=== PATIENT | female | born 1940 | race Caucasian/White ===

== ENCOUNTER 2018-11-05 11:12 | Inpatient (IN) | payer MEDICARE, MEDICAID ==
[~2018-11-05] VITALS: Ht 162.6 cm; Wt 44.4 kg
[2018-11-26 08:00] VITALS: BP 110/71
== END 2018-11-26 10:39 | DRG 480 ==
LOC: ED 11:53 → EDIP 12:34 → 4NOR 13:45 → 5SO 11-07 17:36 → CCU 11-08 05:21 → 4WST 11-12 18:47
PROVIDERS: ADMIT Internal Medicine; ATTEND Internal Medicine
PROC: 0QS636Z Reposition Right Upper Femur with Intramedullary Internal Fixation Device, Percutaneous Approach (ICD-10-PCS; principal; 2018-11-06)
PROC: 0PSH34Z Reposition Right Radius with Internal Fixation Device, Percutaneous Approach (ICD-10-PCS; 2018-11-06)
PROC: 30233N1 Transfusion of Nonautologous Red Blood Cells into Peripheral Vein, Percutaneous Approach (ICD-10-PCS; 2018-11-08)
DX: S72.141A Displaced intertrochanteric fracture of right femur, initial encounter for closed fracture (principal); J69.0 Pneumonitis due to inhalation of food and vomit; I50.43 Acute on chronic combined systolic (congestive) and diastolic (congestive) heart failure; J96.01 Acute respiratory failure with hypoxia; S52.551A Other extraarticular fracture of lower end of right radius, initial encounter for closed fracture; S52.601A Unspecified fracture of lower end of right ulna, initial encounter for closed fracture; D62 Acute posthemorrhagic anemia; E46 Unspecified protein-calorie malnutrition; I42.9 Cardiomyopathy, unspecified; Z68.1 Body mass index [BMI] 19.9 or less, adult; I08.3 Combined rheumatic disorders of mitral, aortic and tricuspid valves; D72.828 Other elevated white blood cell count; W10.9XXA Fall (on) (from) unspecified stairs and steps, initial encounter; E87.6 Hypokalemia; I48.0 Paroxysmal atrial fibrillation; K21.9 Gastro-esophageal reflux disease without esophagitis; Z87.81 Personal history of (healed) traumatic fracture; Z87.891 Personal history of nicotine dependence; Z79.899 Other long term (current) drug therapy; Z90.49 Acquired absence of other specified parts of digestive tract; Z88.6 Allergy status to analgesic agent; Y93.89 Activity, other specified; Y92.89 Other specified places as the place of occurrence of the external cause; Y99.8 Other external cause status
CPT/HCPCS: 36415; 36430; 36600; 71045; 76000; 80048; 80162; 82040; 82803; 83735; 83880; 84100; 84145; 84439; 84443; 84484; 85018; 85025; 85610; 85730; 86850; 86900; 86923; 87070; 87081; 87205; 93005; 93306; 94660; 96374; 99285; C1713; G0378; J0295; J0690; J1100; J1170; J1644; J1650; J1885; J2020; J2405; J2543; J2550; J2704; J2710; J3010; J3480; Q0162; Q0167; C9113; J0330; J1160; J1200; J1940; J2270; J7030; J7040; P9016

== ENCOUNTER 2020-02-10 03:40 | Inpatient (IN) | payer MEDICARE, MEDICAID ==
[~2020-02-10] VITALS: Ht 160 cm; Wt 53.4 kg
[~2020-02-10 03:40] MED LIST: ACET325T26 PO; APIX5TAB PO; CARV3.1212 PO; DIGO125T85 PO; DRON2.5C2 PO; LIDO700A20 TD; NYST1000 PO; PANT40TA6 PO; PEG15DRO4 EACHEYE; Simethicone PO; TRAM50TA2 PO
--- NOTE | 2020-02-10 03:56 | NUR ---
THIS IS A 79Y F BIB EMS FROM [facility], PT WAS SEEN THERE TODAY FOR WEAKNESS FOLLOWING N/V X1WK OR SO. PT WAS ADMITTED PREVIOUSLY FOR GASTRITIS LAST MONTH. PT TODAY WAS FOUND TO HAVE CA OF 13.5 TRENDING DOWN AFTER 2L NS, 4ZOFRAN, AND 40 OF LASIX. PT TRANSFERED HERE DUE TO LACK OF AVAILABLE MONITORED BEDS AT [facility]. PT CONNECTED TO ALL MONITORING VSS, NADN.
[2020-02-10] MEDS ORDERED: SODIUM CHLORIDE 0.9% 1,000ML IVBOLUS ONE (04:00)
[2020-02-10 04:41] LABS: ALBUMIN 3.1 g/dL (3.4-5.0); ANION GAP 5 mmol/L (5-15); CALCIUM 11.5 mg/dL (8.5-10.1); CHLORIDE 103 mmol/L (98-107); CREATININE 2.79 mg/dL (0.55-1.02)
--- NOTE | 2020-02-10 04:59 | NUR ---
pt resting on gurestee provided with water, anne
[2020-02-10] MEDS ORDERED: morphine SULFATE 10 MG/ML, 1ML IVPush PRN (05:00)
[2020-02-10] MEDS ORDERED: SODIUM CHLORIDE 0.9% 1,000 ML IV SCH (05:00)
--- NOTE | 2020-02-10 05:36 | NUR ---
REPORT TO RASHEED
[2020-02-10] MEDS ORDERED: PHARMACY MAY ADJ FOR RENAL FX MC PRN (06:00)
--- NOTE | 2020-02-10 06:10 | NUR ---
Ambulated to bathroom independently, slow/steady gait
--- NOTE | 2020-02-10 06:17 | NUR ---
Report given to Marlena RUBIO
[2020-02-10 08:16] LABS: CHLORIDE,URINE RANDOM 92 mmol/L; POTASSIUM,URINE RANDOM 23 mmol/L; SODIUM,URINE RANDOM 94 mmol/L
[2020-02-10 09:09] VITALS: BP 105/73
[2020-02-10 12:46] LABS: ALBUMIN 3.1 g/dL (3.4-5.0); CALCIUM 10.9 mg/dL (8.5-10.1); CHLORIDE 104 mmol/L (98-107); CREATININE 2.71 mg/dL (0.55-1.02)
[2020-02-10 12:53] LABS: ANION GAP 7 mmol/L (5-15)
[2020-02-10] MEDS ORDERED: POTASSIUM CHLORIDE 20 MEQ TAB.ER.PRT PO ONE ×2 (14:00→19:00)
[2020-02-10 15:23] VITALS: BP 94/56
[2020-02-10 18:28] LABS: ANION GAP 4 mmol/L (5-15); CHLORIDE 106 mmol/L (98-107); CREATININE 2.64 mg/dL (0.55-1.02)
[2020-02-10] MEDS ORDERED: POTASSIUM CHLORIDE 40 MEQ in SODIUM CHLORIDE 0.9% 500 ML IV ONE (19:00)
[2020-02-10] MEDS: ONDANSETRON 2MG/ML, 2ML IVPush PRN (20:01)
[2020-02-10] MEDS ORDERED: MAGNESIUM SULFATE PMX 2GM/50ML 50 ML IV ONE (21:00)
[2020-02-10 21:35] VITALS: BP 100/62
[2020-02-10] MEDS: PROMETHAZINE 25 MG/ML, 1ML IM PRN (22:16)
[2020-02-11 04:19] VITALS: BP 111/54
[2020-02-11 04:23] LABS: BASOPHILS % (AUTO) 1 % (0-1); EOSINOPHILS % (AUTO) 2 % (1-7); LYMPHOCYTES % (AUTO) 37 % (22-44); MEAN CORPUSCULAR HEMOGLOBIN 29.3 pg (27.0-34.8); MEAN CORPUSCULAR HGB CONC 33.5 g/dL (32.4-35.8); MEAN PLATELET VOLUME 6.7 fL (7.4-10.4); MONOCYTES % (AUTO) 9 % (2-9); NEUTROPHILS % (AUTO) 51 % (42-75); PLATELET COUNT 268 x10^3/uL (130-400); RED BLOOD COUNT 3.18 x10^6/uL (3.82-5.3); RED CELL DISTRIBUTION WIDTH 12.9 % (9.6-15.2)
[2020-02-11 04:27] LABS: MD NO
[2020-02-11 04:31] LABS: ALANINE AMINOTRANSFERASE 9 U/L (12-78); ALBUMIN 2.8 g/dL (3.4-5.0); ANION GAP 6 mmol/L (5-15); CALCIUM 10.1 mg/dL (8.5-10.1); CHLORIDE 111 mmol/L (98-107); CREATININE 2.54 mg/dL (0.55-1.02)
[2020-02-11 04:33] LABS: ALKALINE PHOSPHATASE 35 U/L (45-117); BILIRUBIN,TOTAL 0.3 mg/dL (0.2-1.0); TOTAL PROTEIN 5.5 g/dL (6.4-8.2)
[2020-02-11 06:05] LABS: MICROSCOPIC AUTO
[2020-02-11 08:10] VITALS: BP 134/71
[2020-02-11 13:03] VITALS: BP 118/75
[2020-02-11] MEDS: ACETAMINOPHEN 325 MG TABLET PO PRN (18:30)
[2020-02-11 19:25] VITALS: BP 123/79
[2020-02-11 22:15] VITALS: BP 117/61
[2020-02-11] MEDS: ARTIFICIAL TEARS 15 DROP/ML BOTTLE EACHEYE SCH (22:18)
[2020-02-11] MEDS: ONDANSETRON 2MG/ML, 2ML IVPush PRN (23:25)
[2020-02-12] MEDS: PROMETHAZINE 25 MG/ML, 1ML IM PRN (00:39)
[2020-02-12] MEDS: ACETAMINOPHEN 325 MG TABLET PO PRN ×2 (01:30→09:26)
[2020-02-12 01:41] VITALS: BP 116/95
[2020-02-12 04:33] LABS: ALANINE AMINOTRANSFERASE 9 U/L (12-78); ALBUMIN 2.6 g/dL (3.4-5.0); ANION GAP 5 mmol/L (5-15); CHLORIDE 113 mmol/L (98-107); CREATININE 2.43 mg/dL (0.55-1.02)
[2020-02-12 04:36] LABS: ALKALINE PHOSPHATASE 31 U/L (45-117); BILIRUBIN,TOTAL 0.4 mg/dL (0.2-1.0); TOTAL PROTEIN 5.4 g/dL (6.4-8.2)
[2020-02-12 06:54] VITALS: BP 110/67
[2020-02-12] MEDS: ARTIFICIAL TEARS 15 DROP/ML BOTTLE EACHEYE SCH ×2 (07:51→19:56)
[2020-02-12] MEDS ORDERED: POTASSIUM CHLORIDE 40 MEQ in SODIUM CHLORIDE 0.9% 500 ML IV ONE (09:00)
[2020-02-12] MEDS ORDERED: SODIUM CHLORIDE 0.9% 1,000ML IVBOLUS ONE (09:00)
[2020-02-12] MEDS: MAGNESIUM HYDROXIDE 8%, 30ML UDC PO SCH (11:22)
[2020-02-12 13:00] VITALS: BP 133/70
[2020-02-12 20:09] VITALS: BP 128/69
[2020-02-13 02:16] VITALS: BP 128/69
[2020-02-13 05:21] LABS: ALANINE AMINOTRANSFERASE 10 U/L (12-78); ALBUMIN 2.6 g/dL (3.4-5.0); ANION GAP 4 mmol/L (5-15); CALCIUM 9.5 mg/dL (8.5-10.1); CHLORIDE 115 mmol/L (98-107); CREATININE 2.05 mg/dL (0.55-1.02)
[2020-02-13 05:22] LABS: BASOPHILS % (AUTO) 1 % (0-1); EOSINOPHILS % (AUTO) 2 % (1-7); LYMPHOCYTES % (AUTO) 29 % (22-44); MEAN CORPUSCULAR HEMOGLOBIN 29.5 pg (27.0-34.8); MEAN CORPUSCULAR HGB CONC 34.1 g/dL (32.4-35.8); MEAN PLATELET VOLUME 6.8 fL (7.4-10.4); MONOCYTES % (AUTO) 8 % (2-9); NEUTROPHILS % (AUTO) 60 % (42-75); PLATELET COUNT 267 x10^3/uL (130-400); RED BLOOD COUNT 3.18 x10^6/uL (3.82-5.3)
[2020-02-13 05:23] LABS: ALKALINE PHOSPHATASE 31 U/L (45-117); BILIRUBIN,TOTAL 0.2 mg/dL (0.2-1.0); TOTAL PROTEIN 5.2 g/dL (6.4-8.2)
[2020-02-13 05:27] LABS: MD NO
[2020-02-13 06:53] VITALS: BP 114/72
[2020-02-13] MEDS: MAGNESIUM HYDROXIDE 8%, 30ML UDC PO SCH (07:58)
[2020-02-13] MEDS: ARTIFICIAL TEARS 15 DROP/ML BOTTLE EACHEYE SCH (07:58)
== END 2020-02-13 15:00 | disposition home or self-care (01) | DRG 640 ==
LOC: ED 04:47 → EDIP 05:09 → 4WST 07:06 → 3N 02-12 15:58
PROVIDERS: ADMIT Family Medicine; ATTEND Hospitalist
DX: E83.52 Hypercalcemia (principal); N17.0 Acute kidney failure with tubular necrosis; I50.22 Chronic systolic (congestive) heart failure; E87.6 Hypokalemia; E86.0 Dehydration; I48.0 Paroxysmal atrial fibrillation; K59.00 Constipation, unspecified; Z66 Do not resuscitate; K21.9 Gastro-esophageal reflux disease without esophagitis; Z88.8 Allergy status to other drugs, medicaments and biological substances; Z88.6 Allergy status to analgesic agent; Z90.49 Acquired absence of other specified parts of digestive tract
CPT/HCPCS: 36415; 80048; 80053; 81001; 82040; 82306; 82310; 82330; 82397; 82436; 82570; 83735; 83970; 84100; 84133; 84300; 84443; 85025; 87086; 93306; 99285; G0378; J2405; J2550; J3480; J3475; J7030; J7040